=== PATIENT | female | born 2000 | race African-American/Black ===

== ENCOUNTER → 2023-10-06 | Outpatient (CLI) | payer OTHER | LOC: MHCPAIN 08:41 | DX: M54.6 Pain in thoracic spine (principal); M79.18 Myalgia, other site; G89.29 Other chronic pain | CPT/HCPCS: G0463 ==

== ENCOUNTER → 2023-10-17 | Outpatient (CLI) | payer OTHER | LOC: MHCPAIN 09:12 | DX: M79.18 Myalgia, other site (principal); M54.6 Pain in thoracic spine; M54.2 Cervicalgia | CPT/HCPCS: J0665; J1100 ==

== ENCOUNTER → 2023-11-06 | Outpatient (CLI) | payer OTHER | LOC: MHCPAIN 10:15 | DX: M54.6 Pain in thoracic spine (principal); M79.18 Myalgia, other site; M54.16 Radiculopathy, lumbar region; M54.2 Cervicalgia | CPT/HCPCS: G0463 ==